=== PATIENT | male | born 1980 | race Caucasian/White ===

== ENCOUNTER 2020-08-28 20:22 | Emergency (ER) | payer SELFPAY ==
[~2020-08-28] VITALS: Ht 175.3 cm; Wt 94.8 kg
--- NOTE | 2020-08-28 20:22 | NUR ---
LIONEL MEJIA. TAKEN TO CHAIR C
[2020-08-28 20:24] VITALS: BP 150/98
--- NOTE | 2020-08-28 21:10 | NUR ---
PATIENT BIB [employer]. PATIENT EXAMINED BY DR. GONZALEZ. PATIENT MEDICALLY CLEARED AND RELEASED IN CUSTODY IN STABLE CONDITION. ORIGINAL PRE-BOOK FORM GIVEN TO OFFICER LILIAN, #[id number].
== END 2020-08-28 20:24 | disposition home or self-care (01) ==
LOC: MED 20:22
DX: Z02.89 Encounter for other administrative examinations (principal); E11.9 Type 2 diabetes mellitus without complications; I10 Essential (primary) hypertension; F41.9 Anxiety disorder, unspecified; F17.210 Nicotine dependence, cigarettes, uncomplicated; Z71.6 Tobacco abuse counseling; Z91.011 Allergy to milk products; V49.40XA Driver injured in collision with unspecified motor vehicles in traffic accident, initial encounter; Y93.89 Activity, other specified; Y92.89 Other specified places as the place of occurrence of the external cause; Y99.8 Other external cause status
CPT/HCPCS: 99283